=== PATIENT | female | born 1995 | race Caucasian/White ===

== ENCOUNTER 2018-11-03 19:25 | Emergency (ER) | payer OTHER ==
[~2018-11-03] VITALS: Ht 162.6 cm; Wt 72.6 kg
[2018-11-03 21:06] LABS: ABSOLUTE BASOPHILS 0.1 thou/uL (0.0-0.2); ABSOLUTE EOSINOPHILS 0.1 thou/uL (0.0-0.7); ABSOLUTE LYMPHOCYTES 2.4 thou/uL (0.8-5.3); ABSOLUTE MONOCYTES 0.7 thou/uL (0.0-1.2); BASOPHILS 0.8 %; EOSINOPHILS 0.6 %; HEMATOCRIT 43.7 % (37.0-47.0); HEMOGLOBIN 14.8 gm/dL (12.0-15.0); LYMPHOCYTES 18.2 %; MCH 29.6 pg (26.0-34.0); MCHC 33.8 g/dL (28.0-37.0); MCV 87.6 fL (80.0-100.0); MONOCYTES 5.5 %; MPV 7.1 fl. (7.2-11.1); NUCLEATED RBCS 0 /100WBC; PLATELET COUNT* 517 thou/uL (150-400); POLYS 74.9 %; RBC 4.98 mil/uL (4.20-5.00); RDW-CV 12.9 % (10.5-14.5); WBC 13.3 thou/uL (4.0-11.0)
[2018-11-03 21:13] LABS: CALCIUM 8.9 mg/dL (8.5-10.1); CREATININE 0.8 mg/dL (0.6-1.3); POTASSIUM 3.7 mmol/L (3.5-5.1)
[2018-11-03 22:07] LABS: URINE BLOOD TRACE (Negative); URINE CLARITY CLEAR; URINE COLOR YELLOW; URINE GLUCOSE-RANDOM NEGATIVE (Negative); URINE KETONES 2+ (Negative); URINE LEUKOCYTES-REFLEX TRACE (Negative); URINE NITRITE-REFLEX NEGATIVE (Negative); URINE PROTEIN NEGATIVE (Negative); URINE SPECIFIC GRAVITY >= 1.030 (1.005-1.030); URINE UROBILINOGEN 0.2 E.U./dl (0.2-1.0)
[2018-11-03 22:15] LABS: ICTOTEST (BILI CONFIRMATORY) Negative (Negative); URINE BILIRUBIN 1+ (Negative)
[2018-11-03 22:16] LABS: BACTERIA-REFLEX 1-9 Few /HPF (None Seen); CASTS None Seen /LPF (None Seen); CRYSTALS None Seen /LPF (None Seen); MUCUS 0-3 Light strn/LPF (None Seen); SQUAMOUS 0-3 Few /LPF (0-3); URINE RBC 0-2 Rare /HPF (0-2); URINE WBC-REFLEX 0-5 Rare /HPF (0-5)
[2018-11-03] MEDS ORDERED: KEFLEX500 M1 PO (23:20)
[2018-11-03 23:35] VITALS: BP 117/78
== END 2018-11-03 23:35 | disposition home or self-care (01) ==
LOC: M.ERS 19:25
PROVIDERS: Emergency Medicine
DX: O23.41 Unspecified infection of urinary tract in pregnancy, first trimester (principal); O20.9 Hemorrhage in early pregnancy, unspecified; Z3A.09 9 weeks gestation of pregnancy

== ENCOUNTER 2018-12-19 18:57 | Emergency (ER) | payer OTHER ==
[~2018-12-19] VITALS: Ht 157.5 cm; Wt 65.2 kg
[~2018-12-19 18:57] MED LIST: KEFLEX500 M1 PO
[2018-12-19 19:28] LABS: URINE BLOOD TRACE (Negative); URINE CLARITY CLEAR; URINE COLOR YELLOW; URINE GLUCOSE-RANDOM NEGATIVE (Negative); URINE LEUKOCYTES-REFLEX 1+ (Negative); URINE NITRITE-REFLEX NEGATIVE (Negative); URINE PROTEIN 1+ (Negative); URINE SPECIFIC GRAVITY >= 1.030 (1.005-1.030)
[2018-12-19 19:29] LABS: URINE BILIRUBIN 1+ (Negative); URINE KETONES 3+ (Negative)
[2018-12-19 19:33] LABS: ICTOTEST (BILI CONFIRMATORY) Negative (Negative)
[2018-12-19 19:36] LABS: ACETEST (KETONE CONFIRMATORY) Small (Negative)
[2018-12-19 19:37] LABS: CASTS None Seen /LPF (None Seen); CRYSTALS None Seen /LPF (None Seen); SQUAMOUS 0-3 Few /LPF (0-3); URINE RBC 0-2 Rare /HPF (0-2); URINE WBC-REFLEX 0-5 Rare /HPF (0-5)
[2018-12-19 19:41] LABS: ABSOLUTE BASOPHILS 0.1 thou/uL (0.0-0.2); ABSOLUTE EOSINOPHILS 0.1 thou/uL (0.0-0.7); ABSOLUTE LYMPHOCYTES 1.9 thou/uL (0.8-5.3); ABSOLUTE MONOCYTES 0.7 thou/uL (0.0-1.2); ABSOLUTE NEUTROPHILS 5.4 thou/uL (1.6-8.1); BASOPHILS 0.6 %; EOSINOPHILS 1.6 %; HEMATOCRIT 40.1 % (37.0-47.0); HEMOGLOBIN 14.2 gm/dL (12.0-15.0); LYMPHOCYTES 23.1 %; MCH 29.9 pg (26.0-34.0); MCHC 35.3 g/dL (28.0-37.0); MCV 84.7 fL (80.0-100.0); MONOCYTES 8.5 %; MPV 8.9 fl. (7.2-11.1); NUCLEATED RBCS 0 /100WBC; PLATELET COUNT* 322 thou/uL (150-400); POLYS 66.2 %; RBC 4.74 mil/uL (4.20-5.00); RDW-CV 13.2 % (10.5-14.5); WBC 8.2 thou/uL (4.0-11.0)
[2018-12-19 19:57] LABS: ALBUMIN 3.6 g/dL (3.4-5.0); CALCIUM 9.4 mg/dL (8.5-10.1); CREATININE 0.7 mg/dL (0.6-1.3); POTASSIUM 3.3 mmol/L (3.5-5.1); TOTAL BILIRUBIN 0.7 mg/dL (<0.1-1.0); TOTAL PROTEIN 7.8 g/dL (6.4-8.2)
[2018-12-19] MEDS ORDERED: DICLEGIS DR 101 EACH PO (19:58)
[2018-12-19 21:05] VITALS: BP 115/68
== END 2018-12-19 21:00 | disposition home or self-care (01) ==
LOC: M.ERS 18:57
PROVIDERS: Physician Assistant
DX: O21.8 Other vomiting complicating pregnancy (principal); O99.281 Endocrine, nutritional and metabolic diseases complicating pregnancy, first trimester; E86.0 Dehydration; Z3A.14 14 weeks gestation of pregnancy

== ENCOUNTER 2019-02-21 19:20 | Emergency (ER) | payer OTHER, MEDICAID ==
[~2019-02-21] VITALS: Ht 162.6 cm; Wt 68.0 kg
[~2019-02-21 19:20] MED LIST changes: +DICLEGIS DR 101 EACH PO
[2019-02-21] MEDS ORDERED: KEFLEX500 M1 PO (20:39)
[2019-02-21 20:55] VITALS: BP 125/70
== END 2019-02-21 20:57 | disposition home or self-care (01) ==
LOC: M.ERS 19:20
DX: J06.9 Acute upper respiratory infection, unspecified (principal); Z20.818 Contact with and (suspected) exposure to other bacterial communicable diseases; Z20.89 Contact with and (suspected) exposure to other communicable diseases